=== PATIENT | male | born 1975 | race American Indian/Alaskan Native ===

== ENCOUNTER 2019-07-05 23:13 | Emergency (ER) | payer SELFPAY ==
[2019-07-06 00:17] VITALS: BP 133/78
[2019-07-06] MEDS ORDERED: dexAMETHasone 20 MG/5 ML VIAL IM ONE (04:20)
[2019-07-06] MEDS ORDERED: KETOROLAC 30 MG/1 ML INJ IM ONE (04:20)
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
== END 2019-07-06 06:48 | disposition home or self-care (01) ==
LOC: ED 23:13
DX: S16.1XXA Strain of muscle, fascia and tendon at neck level, initial encounter (principal); M54.12 Radiculopathy, cervical region; Z79.899 Other long term (current) drug therapy; X58.XXXA Exposure to other specified factors, initial encounter; Y93.89 Activity, other specified; Y92.89 Other specified places as the place of occurrence of the external cause; Y99.8 Other external cause status
CPT/HCPCS: 96372; 99282; J1100; J1885